=== PATIENT | female | born 1995 | race Caucasian/White ===

== ENCOUNTER 2020-10-10 14:11 | Emergency (ER) | payer OTHER ==
[~2020-10-10] VITALS: Ht 167.6 cm; Wt 84.0 kg
--- NOTE | 2020-10-10 14:31 | NUR ---
ASSIGNMENT OFFICER: EKG COMPLETE IN TRIAGE.
[2020-10-10 14:50] LABS: BASOPHILS % (AUTO) 0 % (0-1); EOSINOPHILS % (AUTO) 1 % (1-7); LYMPHOCYTES % (AUTO) 29 % (22-44); MEAN CORPUSCULAR HEMOGLOBIN 31.3 pg (27.0-34.8); MEAN CORPUSCULAR HGB CONC 34.5 g/dL (32.4-35.8); MEAN PLATELET VOLUME 7.7 fL (7.4-10.4); MONOCYTES % (AUTO) 5 % (2-9); NEUTROPHILS % (AUTO) 65 % (42-75); PLATELET COUNT 284 x10^3/uL (130-400); RED BLOOD COUNT 4.49 x10^6/uL (3.82-5.3); RED CELL DISTRIBUTION WIDTH 12.6 % (9.6-15.2)
[2020-10-10 14:55] LABS: MD NO
[2020-10-10 14:57] LABS: ALANINE AMINOTRANSFERASE 21 U/L (12-78); ALBUMIN 3.9 g/dL (3.4-5.0); CALCIUM 8.9 mg/dL (8.5-10.1); CREATININE 0.79 mg/dL (0.55-1.02)
[2020-10-10 15:07] LABS: ALKALINE PHOSPHATASE 57 U/L (45-117); ANION GAP 6 mmol/L (5-15); BILIRUBIN,TOTAL 0.4 mg/dL (0.2-1.0); CHLORIDE 107 mmol/L (98-107); FREE T4 (FREE THYROXINE) 1.05 ng/dL (0.76-1.46); TOTAL PROTEIN 7.3 g/dL (6.4-8.2)
--- NOTE | 2020-10-10 17:09 | NUR ---
pt to room from lobby
[2020-10-10 17:10] VITALS: BP 121/82
--- NOTE | 2020-10-10 17:12 | NUR ---
pt states "I'm not as dizzy as I was when I got here". Dr valdez at bedside
== END 2020-10-10 17:45 | disposition home or self-care (01) ==
LOC: ED 14:52
DX: R55 Syncope and collapse (principal)
CPT/HCPCS: 36415; 80053; 84439; 84443; 84703; 85025; 93005; 99284